=== PATIENT | female | born 1950 | race Caucasian/White ===

== ENCOUNTER → 2023-08-15 11:45 | Outpatient (REF) | payer MEDICARE, OTHER, SELFPAY | LOC: DHCBC/DCA 11:45 | PROVIDERS: ATTENDING PHYSICIAN Internal Medicine Cardiovascular Disease; FAMILY PHYSICIAN Internal Medicine | DX: R07.9 Chest pain, unspecified (principal) | CPT/HCPCS: 78452; 93017; A9500 ==

== ENCOUNTER 2023-08-18 15:35 | Emergency (ER) | payer MEDICARE, OTHER, SELFPAY ==
[2023-08-18 15:50] VITALS: BP 118/76
[2023-08-18 16:03] VITALS: BMI 36.2
[2023-08-18 16:18] VITALS: BP 104/66
[2023-08-18 16:33] LABS: % Basophils 0.6 % (0-2); % Eosinophils 3.1 % (0-6); % Immature Granulocytes 0.2 % (0-0.5); % Lymphocytes 24.1 % (20.5-51.1); % Monocytes 8.5 % (1.7-9.3); % Neutrophils 63.5 % (42.2-75.2); Absolute Eosinophils 0.2 10^3/uL (0-0.7); Absolute Lymphocytes 1.3 10^3/uL (1.2-3.4); Absolute Monocytes 0.5 10^3/uL (0.1-0.6); Absolute Neutrophils 3.5 10^3/uL (1.4-6.5); Hematocrit 39.6 % (37.0-47.0); Hemoglobin 14.1 g/dL (12.0-16.0); Mean Corp Hgb Conc. 35.6 g/dL (33.0-37.0); Mean Corpuscular Hgb 31.6 pg (27.0-31.0); Mean Corpuscular Volume 88.8 fL (81.0-99.0); Mean Platelet Volume 10.4 fL (7.4-10.4); Nucleated Red Blood Cells % 0 %; Platelet Count 220 10^3/uL (130-400); Red Blood Cell Count 4.46 10^6/uL (4.20-5.40); Red Cell Dist. Width 12.3 % (11.5-14.5); White Blood Cell Count 5.4 10^3/uL (4.8-10.8)
[2023-08-18 16:45] LABS: ALT (SGPT) 32 U/L (0-35); AST (SGOT) 54 U/L (14-36); Albumin 4.1 g/dl (3.5-5.0); Alkaline Phosphatase 64 U/L (38-126); Blood Urea Nitrogen 18 mg/dl (7-17); Calcium 10.2 mg/dl (8.4-10.2); Carbon Dioxide 28 mmol/L (22-30); Chloride 101 mmol/L (98-107); Estimated Creatinine Clearance 71 ml/min; Glucose 87 mg/dl (70-99); Potassium 4.3 mmol/L (3.5-5.1); Sodium 139 mmol/L (135-145); Total Bilirubin 1.2 mg/dl (0.2-1.3); Total Protein 6.9 g/dl (6.3-8.2); eGFR > 60.00
[2023-08-18 16:54] LABS: Troponin I < 0.012 ng/ml
[2023-08-18 17:00] VITALS: BP 109/62
[2023-08-18 18:00] VITALS: BP 97/58
--- NOTE | 2023-08-18 18:01 | ED.GENMED ---
History of Present Illness
General
Chief Complaint: Chest Pain
Source: patient
Exam Limitations: none
Time Seen by Provider: 08/18/23 17:30
Travel History
Have you had any contact with someone who has COVID-19?: No
Do you have any symptoms of coronavirus? Fever > 100 degrees, chills, cough, shortness of breath, sore throat, loss of taste or smell, muscle aches, or headache?: No
History of Present Illness
History of Present Illness:
73-year-old female with history of hyperlipidemia and family history of coronary artery disease presents complaining of chest pain that started after her stress test she had 6 days ago. The pain is made worse with motion at times and sometimes made
worse with deep breathing. Is worse when she lays down but denies any shortness of breath or leg swelling. No recent travel or calf pain. She states her mother suddenly from a myocardial infarction in her 50s. The pain goes straight through
to her back. Pain is not made worse with eating. No other complaints at this time
Past History
Past History
ED Past Medical History: Hypercholesterolemia
ED Past Surgical History: None
Social History
Tobacco: Non-smoker
Alcohol: None
Drug: None
Personal:
Living: alone
Employment: Retired
Phy Exam
Physical Exam
Physical Exam:
Physical Exam
General: no apparent distress, not acutely ill
Neck: supple. no meningeal signs. normal psoterior pharynx
Heart: s1/s2 regular rate and rhythm, no murmur. equal radial pulses.
Lungs: no acute respiratory distress. clear bilaterally
Abdomen: normal bowel sounds. not tender. no CVAT
Neuro: alert and oriented. no focal neurological deficits
Skin: no rash
Psychiatric: well kept. interactive and cooperative
Extremities: no edema. no calf tenderness. negative homans. good distal pulses
Scores
Heart Score for Chest Pain Patients
STEMI patient?: No
History: Slightly or Non-Suspicious
ECG: Normal
Age: >/= 65 years
Risk Factors: 1 or 2 Risk Factors
Troponin: </= Normal Limit
Heart Score for Chest Pain Patients: 3
Heart Score Risk: 2.5% MACE over next 6 weeks
Course
Orders/Labs/Results
Orders:
Orders
08/18/23 15:37
ECG [Electrocardiogram (*1)] Urgent
Reason for Study: Chest Pain
EKG- Treatment ONCE
08/18/23 16:19
Complete Blood Count/With Diff Urgent
Comprehensive Metabolic Panel Urgent
Lipase Urgent
Comment: ADD ON
Troponin I Urgent
08/18/23 17:52
Add On- LAB Urgent
Tests Added?: lipase
CT Chest Pe Study Urgent
Comment:
Reason For Exam: chest pain
Abnormal Lab Results
08/18/23
16:19
MCH 31.6 H pg
(27.0-31.0)
BUN 18 H mg/dl
(7-17)
AST 54 H U/L
(14-36)
08/18/23 16:19
08/18/23 16:19
Vital Signs
Initial and Last Documented VS:
Initial Vital Signs
Temp Pulse Resp BP Pulse Ox
98.7 F 59 18 118/76 99
08/18/23 15:50 08/18/23 15:50 08/18/23 15:50 08/18/23 15:50 08/18/23 15:50
Last Documented Vital Signs
Temp Pulse Resp BP Pulse Ox
98.7 F 48 18 97/58 98
08/18/23 15:50 08/18/23 18:00 08/18/23 15:50 08/18/23 18:00 08/18/23 18:00
MDM/Problems Addressed
Differential Diagnosis Includes:
Chest pain. Differential could include ACS versus PE versus reflux versus chest wall strain versus pancreatitis
EKG shows sinus bradycardia. Troponin undetectable. Will check lipase and PE study.
*Critical Care Note
Total Time (30-74mins, 75-104mins- exclusive of procedures): Not Applicable
Update Note
Update Note:
CT PE study negative lipase normal patient remains nontoxic with stable vital signs here. Do not suspect ACS, dissection. Question possible chest wall discomfort versus GERD. Patient recently lost her and is now alone. She states his
discomfort gets worse at night.
ED Attending Note
-
Portions of this chart may have been created with voice recognition software.� Occasional wrong word or��sound alike� substitutions may have occurred due to the inherent limitations of voice recognition software.
Discharge Plan
Departure
Patient Disposition: Home (Routine Discharge)
Date of Disposition: 08/18/23
Time of Disposition: 19:44
Patient with high blood pressure during this ER visit?: No
Discharge Problem:
Chest pain
Instructions: Chest Pain DCA Follow Up
Prescriptions:
No Action
multivitamin 1 EACH tablet
1 ea PO DAILY
atorvastatin 40 MG tablet
80 mg PO QPM
calcium carbonate 600 MG tablet
1,200 mg PO BID
ascorbic acid (vitamin C) [Vitamin C] 500 MG tablet
500 mg PO BID
docosahexaenoic acid-epa 1 CAP capsule
1,200 mg PO BID
vitamins A,C,[id number] [PreserVision AREDS] 1 CAP capsule
1 cap PO BID
Argon Oil Infused With Biotin
5,000 mg PO BID
Blueberry 36:1 Extract
1 tab PO BID
Vitamin D3:
2,000 units PO DAILY
pantoprazole [Protonix] 20 MG tablet,delayed release (DR/EC)
20 mg PO DAILY
Collagen
3 tablets PO DAILY
Referrals:
NONE,* [Active] -
Activity Restrictions/Additional Instructions:
Continue current medication. Please return for worsening symptoms otherwise follow-up with your insulation installer.
Interventions
Interventions:
*Risk Screen - Suicide Last Done: 08/18/23 15:53
*General Assessment Last Done: 08/18/23 15:53
*Neglect/Abuse Screening Last Done: 08/18/23 15:53
ED- Fall Risk Assessment Last Done: 08/18/23 16:49
*ED COVID-19 Vaccine History Last Done: 08/18/23 16:49
ED- Cardiac Assessment Last Done: 08/18/23 16:03
[2023-08-18 18:31] LABS: Lipase 149 U/L (23-300)
[2023-08-18 20:05] VITALS: BP 128/71
== END 2023-08-18 20:26 | disposition home or self-care (01) ==
LOC: EMR 15:35
PROVIDERS: EMERGENCY PHYSICIAN Emergency Medicine; FAMILY PHYSICIAN Internal Medicine
DX: R07.9 Chest pain, unspecified (principal); E78.00 Pure hypercholesterolemia, unspecified; R00.1 Bradycardia, unspecified
CPT/HCPCS: 99285; 71275; 80053; 83690; 84484; 85025; 93005; Q9967

== ENCOUNTER → 2024-02-24 10:27 | Outpatient (REF) | payer MEDICARE, OTHER, SELFPAY ==
--- NOTE | 2024-02-24 12:34 | EEG.RPT ---
Electroencephalogram Report
Recording
Date of EE02/24/24
Type of EEG: Routine
Length of EEG recordin minutes
Done with Video Recording: Yes
Patient Status: Outpatient
Recording Conditions: Awake and Drowsy
Hyperventilation Performed: Yes
Photic Stimulation Performed: Yes
Report
GREATER THAN 1 HOUR EEG REPORT
EEG INTERPRETATION:
Unremarkable EEG for age
CLINICAL CORRELATION:
A normal EEG does not rule out a diagnosis of epilepsy. If clinical suspicion for seizure persists, a prolonged recording may be warranted.
Clinical correlation is advised.
METHODS:
A 21 channel digitized electroencephalogram (EEG) was performed in the [facility]. The 10/20 international system of electrode placement was used with ECG and lateral/vertical eye movements recorded. Persyst quantitative EEG
analysis was performed.
ELECTROENCEPHALOGRAPHER IMPRESSION(S):
Quality of study
Good
Background
Unremarkable, well maintained, medium amplitude alpha-frequency and unremarkable anterior-posterior voltage gradient
With eye opening the background activity changed to a low voltage mixture of frequencies.
Sleep
Drowsiness present
Hyperventilation
Did not activate the record
Photic Stimulation
Did activate the record symmetrically at some flash frequencies
ECG
Normal sinus rhythm
== END ==
LOC: EEG 10:27
PROVIDERS: ATTENDING PHYSICIAN Psychiatry & Neurology Neurology; FAMILY PHYSICIAN Internal Medicine
DX: R25.1 Tremor, unspecified (principal)
CPT/HCPCS: 95813

== ENCOUNTER → 2024-05-25 14:53 | Outpatient (REF) | payer MEDICARE, OTHER, SELFPAY | LOC: HWRCS 14:53 | PROVIDERS: ATTENDING PHYSICIAN Internal Medicine Cardiovascular Disease; FAMILY PHYSICIAN Internal Medicine | DX: I10 Essential (primary) hypertension (principal); R07.9 Chest pain, unspecified | CPT/HCPCS: 93306 ==

== ENCOUNTER → 2024-10-30 09:31 | Outpatient (REF) | payer MEDICARE, OTHER, SELFPAY | LOC: MRI 3T 09:31 | PROVIDERS: ATTENDING PHYSICIAN Psychiatry & Neurology Neurology; FAMILY PHYSICIAN Internal Medicine | DX: R25.1 Tremor, unspecified (principal) | CPT/HCPCS: 70553; A9575 ==

== ENCOUNTER → 2025-03-22 09:24 | Outpatient (REF) | payer MEDICARE, OTHER, SELFPAY | LOC: MRI 3T 09:24 | PROVIDERS: ATTENDING PHYSICIAN Psychiatry & Neurology Neurology; FAMILY PHYSICIAN Internal Medicine | DX: R90.89 Other abnormal findings on diagnostic imaging of central nervous system (principal) | CPT/HCPCS: 70553; A9575 ==

== ENCOUNTER → 2025-04-24 09:02 | Outpatient (REF) | payer MEDICARE, OTHER, SELFPAY | LOC: DHSLP 09:02 | PROVIDERS: ATTENDING PHYSICIAN Internal Medicine; FAMILY PHYSICIAN Internal Medicine | DX: G47.33 Obstructive sleep apnea (adult) (pediatric) (principal); R09.02 Hypoxemia | CPT/HCPCS: 95810 ==